=== PATIENT | female | born 1990 | race African-American/Black ===

== ENCOUNTER 2016-09-22 01:08 | Emergency (ER) | payer MEDICAID ==
[~2016-09-22] VITALS: Ht 157.5 cm; Wt 75.7 kg
[2016-09-22] MEDS ORDERED: NKM (01:09)
[2016-09-22] MEDS ORDERED: Tetanus/Diptheria/Pertussis Vaccine 0.5ml Syr IM ONE (01:15)
[2016-09-22] MEDS ORDERED: KEFLEX500 MG ORAL (01:57)
--- NOTE | 2016-09-22 01:58 | Emergency Room Report ---
History of Present Illness General Chief Complaint: Laceration Source: Patient, EMS Present Illness HPI This is a 25-year-old female who is right-hand dominant. She's also homeless. She presents with chief complaint of laceration to left fourth finger. She was picking up a metal trash can and sustained a laceration. She called 911. No active bleeding. Minimal pain. No other complaint. Allergies: Coded Allergies: No Known Allergies (Unverified , 09/22/16) Patient History Past Medical History: see triage record, old chart reviewed Past Surgical History: none Pertinent Family History: none Social History: Denies: smoking Last Menstrual Period: 5 YRS AGO Now: No Immunizations: other Reviewed Nursing Documentation: PMH: Agreed, PSxH: Agreed Nursing Documentation-PMH Past Medical History: No Stated History Review of Systems Eye: Denies: blurred vision, eye pain ENT: Denies: ear pain, nose congestion, throat swelling Respiratory: Denies: cough, shortness of breath Cardiovascular: Denies: chest pain, palpitations Gastrointestinal: Denies: abdominal pain, diarrhea, nausea, vomiting Musculoskeletal: Denies: back pain, joint pain Skin: Denies: rash Neurological: Denies: headache, numbness Endocrine: Denies: increased thirst, increased urine Hematologic/Lymphatic: Denies: easy bruising All Other Systems: negative except mentioned in HPI Physical Exam Vital Signs Date Time Temp Pulse Resp B/P Pulse Ox O2 Delivery O2 Flow Rate FiO2 09/22/16 01:05 98.4 100 18 125/75 98 Room Air vitals normal Sp02 EP Interpretation: reviewed, normal General Appearance: well appearing, no apparent distress, alert Head: normocephalic, atraumatic Eyes: bilateral eye EOMI, bilateral eye PERRL ENT: hearing grossly normal, normal pharynx Neck: full range of motion, supple, no meningismus Respiratory: chest non-tender, lungs clear, normal breath sounds Cardiovascular #1: regular rate, rhythm, no murmur Gastrointestinal: normal bowel sounds, non tender, no mass, no organomegaly, no bruit, non-distended Musculoskeletal: back normal, gait/station normal, normal range of motion, other - 1 cm laceration to the pad of the fourth left finger. No foreign body. No tendon laceration. Full range of motion the MCP, PIP, DIP joint. Sensation normal. No nailbed involvement. Psychiatric: mood/affect normal Skin: warm/dry Procedures Laceration/Wound Repair Laceration/Wound Repair : Consent: Verbal Wound Location: upper extremity Wound's Depth, Shape: linear Wound Length (cm): 1 Wound Explored: clean Irrigated w/ Saline (ccs): 1000 Betadine Prep?: Yes Anesthesia: 1% Lidocaine Volume Anesthetic (ccs): 1 Wound Repaired With: sutures Suture Size/Type: 6:0, nylon Number of Sutures: 4 Patient Tolerated: Well Complications: None Medical Decision Making Diagnostic Impression: Primary Impression: Laceration of finger of left hand Qualified Codes: S61.217A - Laceration without foreign body of left little finger without damage to nail, initial encounter ER Course Patient With finger laceration. No fracture or dislocation. No foreign body. No tendon involvement. We'll discharge home. She is homeless but does not want to go to a care home. Does not want social work administrator consult. Last Vital Signs Date Time Temp Pulse Resp B/P Pulse Ox O2 Delivery O2 Flow Rate FiO2 09/22/16 01:05 98.4 100 18 125/75 98 Room Air Status: improved Disposition: HOME, SELF-CARE Condition: Stable Scripts Cephalexin* (KEFLEX*) 500 Mg Capsule 500 MG ORAL TID, #21 CAP 0 Refills Prov: ANGELY WAGNER M.D. 09/22/16 Patient Instructions: Laceration Care, Adult Additional Instructions: Followup your DrKamilah in 7 days. Return if symptom worsen. ANGELY WAGNER M.D. Sep 22, 2016 01:58
[2016-09-22 03:45] VITALS: BP 120/88
[2016-09-22 06:00] VITALS: BP 126/89
[2016-09-22 06:24] VITALS: BP 120/88
== END 2016-09-22 06:26 | disposition home or self-care (01) ==
LOC: EDBD 01:08 → EMR 02:21
DX: S61.217A Laceration without foreign body of left little finger without damage to nail, initial encounter (principal); X58.XXXA Exposure to other specified factors, initial encounter; Y93.9 Activity, unspecified; Y92.9 Unspecified place or not applicable; Z23 Encounter for immunization; Z59.0 Homelessness
CPT/HCPCS: 90471; 90715; 96372